=== PATIENT | male | born 1980 | race African-American/Black ===

== ENCOUNTER 2018-07-17 06:33 | Emergency (ER) | payer OTHER ==
[2018-07-17] MEDS ORDERED: TETRACAINE HCL 0.5% 4 ML OPHTH SOLN ONE (06:51)
[2018-07-17] MEDS ORDERED: FLUORESCEIN SODIUM 1 STRIP STRIP ONE (06:52)
[2018-07-17] MEDS ORDERED: ERYTHROMYCIN BASE 0.5% OPHTH OINT 1 GM TUBE ONE (07:09)
[2018-07-17] MEDS ORDERED: IBUPROFEN 600 MG TABLET ONE (07:09)
== END 2018-07-17 07:59 | disposition home or self-care (01) ==
LOC: EDH 06:33
DX: S05.02XA Injury of conjunctiva and corneal abrasion without foreign body, left eye, initial encounter (principal); X58.XXXA Exposure to other specified factors, initial encounter; Y93.89 Activity, other specified; Y92.89 Other specified places as the place of occurrence of the external cause; Y99.8 Other external cause status